=== PATIENT | male | born 2000 | race Caucasian/White ===

== ENCOUNTER 2018-09-16 15:33 | Emergency (ER) | payer MEDICAID ==
[~2018-09-16] VITALS: Ht 177.8 cm; Wt 49.9 kg
[2018-09-16 15:43] VITALS: BP 123/100
[2018-09-16 16:34] LABS: APPEARANCE,URINE CLEAR (CLEAR); BILIRUBIN,URINE NEGATIVE (NEGATIVE); BLOOD, URINE NEGATIVE (NEGATIVE); COLOR,URINE YELLOW (YELLOW); LEUKOCYTE ESTERASE ,URINE NEGATIVE (NEGATIVE); NITRITE, URINE NEGATIVE (NEGATIVE); UGLUCOSE NEGATIVE (NEGATIVE)
[2018-09-16 17:30] VITALS: BP 124/75
== END 2018-09-16 17:30 | disposition home or self-care (01) ==
LOC: MED 15:33
DX: R30.0 Dysuria (principal); R35.0 Frequency of micturition; R39.15 Urgency of urination; F17.210 Nicotine dependence, cigarettes, uncomplicated
CPT/HCPCS: 81003; 87086; 99283

== ENCOUNTER 2018-10-31 16:48 | Emergency (ER) | payer MEDICAID ==
[~2018-10-31] VITALS: Ht 175.3 cm; Wt 56.7 kg
[2018-10-31 17:20] VITALS: BP 143/76
--- NOTE | 2018-10-31 18:46 | NUR ---
Patient ambulated to ER bed 11
--- NOTE | 2018-10-31 19:03 | NUR ---
PATIENT PRESENTS TO ED WITH REQUESTING STD TEST; HERPES, HIV... ETC DENIES RASH OF ANY TYPE ON PENIS OR SURROUNDING, DENIES DISCHARGE FROM [facility], PT ADMITS HAS BEEN SEEN IN [facility] ABOUT A MONTH AGO AND ALSO SEEN IN OUR ER FOR SAME COMPLAINT DENIES N/V/D; SKIN IS PINK/WARM/DRY; AAOX4 WITH EVEN AND STEADY GAIT; LUNGS CLEAR BL; HR EVEN AND REGULAR; PT DENIES ANY FEVER, CP, SOB, OR COUGH AT THIS TIME; PATIENT STATES PAIN OF 0/10 AT THIS TIME; VSS; PATIENT POSITIONED FOR COMFORT; HOB ELEVATED; BEDRAILS UP X2; BED DOWN. ER MD MADE AWARE OF PT STATUS.
--- NOTE | 2018-10-31 19:55 | NUR ---
PATIENT LEFT WITHOUT BEING SEEN BY DR. YOON. NO FURTHER CARE PROVIDED FOR PATIENT.
== END 2018-10-31 19:55 | disposition left against medical advice (07) ==
LOC: MED 16:48
DX: R30.9 Painful micturition, unspecified (principal); Z53.21 Procedure and treatment not carried out due to patient leaving prior to being seen by health care provider